=== PATIENT | male | born 1970 | race Caucasian/White ===

== ENCOUNTER 2017-03-10 13:11 | Emergency (ER) | payer BC ==
--- NOTE | 2017-03-10 14:13 | EDM.PDOC ---
ED HPI GENERAL MEDICAL PROBLEM - General Chief Complaint: Lower Extremity Injury/Pain Stated Complaint: RT LEG PAIN Time Seen by Provider: 03/10/17 14:36 Source of Information: Reports: Patient History Limitations: Reports: No Limitations - History of Present Illness INITIAL COMMENTS - FREE TEXT/NARRATIVE: Patient is a 47-year-old male who presents to the ED complaining of right leg pain. 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 Since then he developed bruising to the lateral aspect of the proximal fibula with mild swelling present. Pain is very mild in nature. Over the course of the weekend developed increased swelling to his lower leg with mild pain posteriorly. Upon waking this morning patient has noticed increased redness and warmth noted to the right lower leg. There are superficial abrasions present. He has a history of blood clot to the right leg in the past while being treated for colorectal cancer. Denies any chest pain, sob, fever/chills, nausea/vomiting, abdominal pain, sensation changes, pain to his upper leg, knee, right hip, or any additional complaints. Right Lower Leg Pain Score (Numeric/FACES): 4 - Related Data Allergies Allergy/AdvReac Type Severity Reaction Status Date / Time celecoxib [From Celebrex] Allergy Cannot Verified 03/10/17 13:47 Remember Sulfa (Sulfonamide Allergy Cannot Verified 03/10/17 13:47 Antibiotics) Remember Home Meds: Home Meds Doxycycline [Vibramycin] 100 mg PO Q12HR #14 cap 03/10/17 [Rx] Fexofenadine/Pseudoephedrine [Jazmine-D 12 Hour Tablet] 1 tab PO DAILY 03/10/17 [History] Past Medical History Gastrointestinal History: Reports: Other (See Below) Other Gastrointestinal History: colon resection Musculoskeletal History: Reports: Other (See Below) Other Musculoskeletal History: knee surgery; back surgery Oncologic (Cancer) History: Reports: Colon - Past Surgical History HEENT Surgical History: Reports: Tonsillectomy Social & Family History - Tobacco Use Smoking Status *Q: Never Smoker - Recreational Drug Use Recreational Drug Use: No Review of Systems - Review of Systems Review Of Systems: ROS reveals no pertinent complaints other than HPI. ED EXAM, GENERAL - Physical Exam Exam: See Below Exam Limited By: No Limitations General Appearance: Alert, WD/WN, No Apparent Distress Ears: Normal External Exam, Hearing Grossly Normal Nose: Normal Inspection Throat/Mouth: Normal Voice, No Airway Compromise Neck: Normal Inspection, Supple Respiratory/Chest: No Respiratory Distress, Lungs Clear, Normal Breath Sounds, No Accessory Muscle Use Cardiovascular: Normal Peripheral Pulses, Regular Rate, Rhythm, No Murmur Peripheral Pulses: 2+: Radial (R) GI/Abdominal: Normal Bowel Sounds, Soft, Non-Tender, No Organomegaly, No Distention Back Exam: Normal Inspection Extremities: Other (Right leg: Swelling noted to lower leg with increased redness noted distally. Increased warmth noted. Ecchymosis to the the right proximal fibula. Pain with palpation of the lower extremity. Mild pain posteriorly. No decreased range of motion noted.) Course - Vital Signs Last Recorded V/S: Last Vital Signs Temp 97.6 F 03/10/17 13:48 Pulse 62 03/10/17 13:48 Resp 16 03/10/17 13:48 BP 124/70 03/10/17 13:48 Pulse Ox 98 03/10/17 13:48 - Orders/Labs/Meds Orders: Active Orders 24 hr Category Date Time Status Peripheral IV Care [RC] . DIRECTED Care 03/10/17 14:54 Active Tibia Fibula Rt [CR] Stat Exams 03/10/17 14:53 Taken VL Duplex Lwr Ext Veins Ltd Rt [US] Stat Exams 03/10/17 14:53 Taken Peripheral IV Insertion Adult [OM.PC] Stat Oth 03/10/17 14:53 Ordered Labs: Laboratory Tests 03/10/17 03/10/17 03/10/17 Range/Units 15:10 15:10 15:10 WBC 5.27 (4.23-9.07) K/mm3 RBC 4.68 (4.63-6.08) M/mm3 Hgb 14.1 (13.7-17.5) gm/L Hct 41.1 (40.1-51.0) % MCV 87.8 (79.0-92.2) fl MCH 30.1 (25.7-32.2) pg MCHC 34.3 (32.2-35.5) g/dl RDW Std Deviation 41.4 (35.1-43.9) fL Plt Count 197 (163-337) K/mm3 MPV 9.4 (9.4-12.3) fl Neut % (Auto) 66.2 (34.0-67.9) % Lymph % (Auto) 20.7 L (21.8-53.1) % [place] % (Auto) 7.6 (5.3-12.2) % Eos % (Auto) 4.6 (0.8-7.0) Baso % (Auto) 0.9 (0.1-1.2) % Neut # (Auto) 3.49 (1.78-5.38) K/mm3 Lymph # (Auto) 1.09 L (1.32-3.57) K/mm3 [place] # (Auto) 0.40 (0.30-0.82) K/mm3 Eos # (Auto) 0.24 (0.04-0.54) K/mm3 Baso # (Auto) 0.05 (0.01-0.08) K/mm3 PT 10.2 (8.0-13.0) SECONDS INR 0.94 APTT 27 (22-36) SECONDS Sodium 140 (136-145) mEq/L Potassium 3.8 (3.5-5.1) mEq/L Chloride 106 (98-107) mEq/L Carbon Dioxide 28 (21-32) mEq/L Anion Gap 9.8 (5-15) BUN 15 (7-18) mg/dL Creatinine 1.0 (0.7-1.3) mg/dL Est Cr Clr Drug Dosing 115.09 mL/min Estimated GFR (MDRD) > 60 (>60) mL/min BUN/Creatinine Ratio 15.0 (14-18) Glucose 98 (74-106) mg/dL Calcium 9.1 (8.5-10.1) mg/dL Total Bilirubin 0.5 (0.2-1.0) mg/dL AST 16 (15-37) U/L ALT 20 (16-63) U/L Alkaline Phosphatase 66 (46-116) U/L C-Reactive Protein < 0.2 (<1.0) mg/dL Total Protein 7.0 (6.4-8.2) g/dl Albumin 4.0 (3.4-5.0) g/dl Globulin 3.0 gm/dL Albumin/Globulin Ratio 1.3 (1-2) Meds: Medications Discontinued Medications Generic Name Dose Route Start Last Admin Trade Name Freq PRN Reason Stop Dose Admin Sodium Chloride 10 ml 03/10/17 14:53 03/10/17 15:16 Saline Flush FLUSH 10 ml ASDIRECTED PRN Administration Keep Vein Open - Radiology Interpretation Free Text/Narrative:: IV will be established. Initial labs and studies include CBC, chem 14, CRP, PTT/ INR, PTT, x-ray of the right tib-fib, and VLDL duplex of the right lower extremity. - Re-Assessments/Exams Free Text/Narrative Re-Assessment/Exam: X-ray of right tibia/fibula normal. Labs reviewed with no concerning finding. 1814 VL duplex revealed: No evidence of deep venous thrombosis. Do believe patient may have early onset of cellulitis. Thus patient will received doxycycline 200mg PO. Discharge instructions as documented. Departure - Departure Time of Disposition: 18:19 Disposition: Home, Self-Care 01 Condition: Good Clinical Impression: Cellulitis and abscess of right leg, Superficial abrasion Contusion of leg, right Qualifiers: Encounter type: initial encounter Qualified Code(s): S80.11XA - Contusion of right lower leg, initial encounter - Discharge Information Prescriptions: Doxycycline [Vibramycin] 100 mg PO Q12HR #14 cap Instructions: Cellulitis, Adult, Contusion Referrals: Jenae Burrows PA-C [Primary Care Provider] - Forms: ED Department Discharge Additional Instructions: Take the prescription as prescribed. Utilize Tylenol and ibuprofen in alternating fashion for pain. Elevate when able to reduce swelling and pain. Apply warm compresses 6 times daily, 30 induration, refrain from ice applied to the affected area. Follow-up with PCP in the next 3-5 days. Return to ED for any new or worsening symptoms as discussed including: Increased redness, swelling, fever, nausea/vomiting, or purulent drainage. - My Orders Last 24 Hours: My Active Orders 03/10/17 14:53 Tibia Fibula Rt [CR] Stat VL Duplex Lwr Ext Veins Ltd Rt [US] Stat Peripheral IV Insertion Adult [OM.PC] Stat 03/10/17 14:54 Peripheral IV Care [RC] . DIRECTED - Assessment/Plan Last 24 Hours: My Active Orders 03/10/17 14:53 Tibia Fibula Rt [CR] Stat VL Duplex Lwr Ext Veins Ltd Rt [US] Stat Peripheral IV Insertion Adult [OM.PC] Stat 03/10/17 14:54 Peripheral IV Care [RC] . DIRECTED
[2017-03-10 14:46] VITALS: BP 124/70
[2017-03-10] MEDS ORDERED: Sodium Chloride 0.9% 10 ML Syringe FLUSH PRN (14:53)
--- NOTE | 2017-03-11 11:09 | CR ---
Right tibia and fibula: 2 views of the right tibia and fibula were obtained. Longitudinal lucent line is identified within the diaphysis of the fibula with less prominent lucent line noted within the tibia. These appear more prominent than usually seen for a nutrient foramen. Difficult to completely exclude a longitudinal split i.e. incomplete fracture within the tibia and fibula. Soft tissue swelling is noted. Plantar spur is seen. Impression: 1. Longitudinal lucent lines within the tibia and fibular diaphysis. Difficult to completely exclude incomplete longitudinal fractures. Findings could represent prominent nutrient foramen although this appears somewhat unusual for this etiology. MRI recommended to further evaluate if patient's symptoms warrant further evaluation. Diagnostic code #5 Equivocal disagree with preliminary report issued by [facility] ([facility] report dictated on 03/10/17, 4:27 PM Central Time)
--- NOTE | 2017-03-11 12:17 | US ---
Right lower extremity deep venous ultrasound: Duplex and color flow imaging was obtained of the right common femoral, proximal greater saphenous, superficial femoral, popliteal, posterior tibial and peroneal veins. Left common femoral vein was also evaluated. Posterior tibial vein not well seen. Other veins show normal phasic flow, augmentation and compression. Small amount of subcutaneous fluid seen within the calf. Incidental lymph nodes seen within the right groin. Impression: 1. Poorly seen posterior tibial vein. 2. Small amount of subcutaneous fluid in area of bruising. 3. No findings of deep venous thrombosis are seen. Diagnostic code #2 Agree with preliminary report issued by [facility] ([facility] preliminary report dictated on 03/10/17, 6:33 PM Central Time)
== END 2017-03-10 18:45 | disposition home or self-care (01) ==
LOC: JD.ED 13:11
DX: S80.11XA Contusion of right lower leg, initial encounter (principal); L03.115 Cellulitis of right lower limb; S80.811A Abrasion, right lower leg, initial encounter; Z98.890 Other specified postprocedural states; Z85.038 Personal history of other malignant neoplasm of large intestine; Z79.899 Other long term (current) drug therapy; Z88.2 Allergy status to sulfonamides; Z88.8 Allergy status to other drugs, medicaments and biological substances; W01.0XXA Fall on same level from slipping, tripping and stumbling without subsequent striking against object, initial encounter
CPT/HCPCS: 36415; 73590; 80053; 85025; 85610; 85730; 86140; 93971; 99284; J7050; 99283

== ENCOUNTER 2017-07-07 11:24 | Day surgery (SDC) | payer BC, MEDICAID ==
[~2017-07-07 11:24] MED LIST: Lactated Ringers 1,000 ML IV SCH; Lidocaine 1%/Sod Bicarbonate in NS 8.4% 1 ML Syringe PRN; Sodium Chloride 0.9% 10 ML Syringe FLUSH PRN
[2017-07-07] MEDS ORDERED: Propofol 200 MG/20 ML SDV ONE ×3 (11:54→12:51)
[2017-07-07] MEDS ORDERED: Lidocaine 1% 2 ML ONE ×2 (11:54)
--- NOTE | 2017-07-07 11:59 | PCM.PREANE ---
Preanesthetic Assessment - Anesthesia/Transfusion/Family Hx Anesthesia History: Prior Anesthesia Without Reaction Family History of Anesthesia Reaction: No Transfusion History: No Prior Transfusion(s) - Review of Systems General: Other (Body Aches, improving. Thinks he had the flu wednesday. ) Pulmonary: No Symptoms Cardiovascular: No Symptoms Gastrointestinal: No Symptoms, Other (IBS, Rectal Cancer) Neurological: No Symptoms, Other (Migraines) Other: Reports: None (Blood Clot in Right Leg in 2012), Depression - Physical Assessment NPO Status Date: 07/06/17 NPO Status Time: 22:30 Pulse: 62 O2 Sat by Pulse Oximetry: 98 Respiratory Rate: 17 Blood Pressure: 131/66 Temperature: 36.7 C Weight: 151.046 kg ASA Class: 2 Mental Status: Alert & Oriented x3 Airway Class: Mallampati = 1 Dentition: Reports: Normal Dentition Thyro-Mental Finger Breadths: 3 Mouth Opening Finger Breadths: 3 ROM/Head Extension: Full Lungs: Clear to Auscultation, Normal Respiratory Effort Cardiovascular: Regular Rate, Regular Rhythm - Allergies Allergies/Adverse Reactions: Allergies Allergy/AdvReac Type Severity Reaction Status Date / Time celecoxib [From Celebrex] Allergy Cannot Verified 07/06/17 08:20 Remember Sulfa (Sulfonamide Allergy Cannot Verified 07/06/17 08:20 Antibiotics) Remember - Acknowledgements Anesthesia Type Planned: MAC Pt an Appropriate Candidate for the Planned Anesthesia: Yes Alternatives and Risks of Anesthesia Discussed w Pt/Guardian: Yes Pt/Guardian Understands and Agrees with Anesthesia Plan: Yes PreAnesthesia Questionnaire HEENT History: Reports: Allergic Rhinitis, Impaired Vision Cardiovascular History: Reports: None Respiratory History: Reports: None Gastrointestinal History: Reports: Irritable Bowel Syndrome, Other (See Below) Other Gastrointestinal History: colon resection Genitourinary History: Reports: None RECONCILIATION SPECIALIST History: Reports: None Musculoskeletal History: Reports: Other (See Below) Other Musculoskeletal History: knee surgery; back surgery Neurological History: Reports: Migraines Psychiatric History: Reports: Depression Endocrine/Metabolic History: Reports: None Hematologic History: Reports: Other (See Below) Other Hematologic History: blood clotting disorder Immunologic History: Reports: None Oncologic (Cancer) History: Reports: Colon Dermatologic History: Reports: Other (See Below) Other Dermatologic History: skin infection - Past Surgical History Head Surgeries/Procedures: Reports: None HEENT Surgical History: Reports: Tonsillectomy Cardiovascular Surgical History: Reports: None Respiratory Surgical History: Reports: None GI Surgical History: Reports: Appendectomy Female Surgical History: Reports: None Male Surgical History: Reports: None Endocrine Surgical History: Reports: None Neurological Surgical History: Reports: Other (See Below) Other Neurological Surgeries/Procedures: low back pain Musculoskeletal Surgical History: Reports: None Oncologic Surgical History: Reports: None - SUBSTANCE USE Smoking Status *Q: Never Smoker Recreational Drug Use History: No - HOME MEDS Home Medications: Home Meds Fexofenadine/Pseudoephedrine [Jazmine-D 12 Hour Tablet] 1 tab PO DAILY 03/10/17 [History] Aspirin [Halfprin] 81 mg PO DAILY 07/06/17 [History] Ibuprofen 600 mg PO TID PRN 07/06/17 [History] - CURRENT (IN HOUSE) MEDS Current Meds: Current Medications Lactated Ringer's (Ringers, Lactated) 1,000 mls @ 125 mls/hr IV ASDIRECTED SOPHIA Stop: 07/07/17 23:00 Lidocaine/Sodium Bicarbonate (Buffered Lidocaine 1% In Ns 8.4%) 0.25 ml .XX ONETIME PRN PRN Reason: Prior to IV Start Stop: 07/07/17 18:00 Sodium Chloride (Saline Flush) 10 ml FLUSH ASDIRECTED PRN PRN Reason: Keep Vein Open Stop: 07/07/17 18:00 Discontinued Medications Lidocaine HCl (Xylocaine-Mpf 1%) Confirm Administered Dose 2 mls @ as directed .ROUTE .STK-MED ONE Stop: 07/07/17 11:55 Lidocaine HCl (Xylocaine-Mpf 1%) Confirm Administered Dose 2 mls @ as directed .ROUTE .STK-MED ONE Stop: 07/07/17 11:55 Propofol (Diprivan 20 Ml) Confirm Administered Dose 200 mg .ROUTE .STK-MED ONE Stop: 07/07/17 11:55
[2017-07-07] MEDS ORDERED: fentaNYL 100 MCG/2 ML SDV ONE (12:51)
--- NOTE | 2017-07-07 13:03 | PCM48HPAN ---
Post Anesthesia Note - EVALUATION WITHIN 48HRS OF ANESTHETIC Vital Signs in Normal Range: Yes Patient Participated in Evaluation: Yes Respiratory Function Stable: Yes Airway Patent: Yes Cardiovascular Function Stable: Yes Hydration Status Stable: Yes Pain Control Satisfactory: Yes Nausea and Vomiting Control Satisfactory: Yes Mental Status Recovered: Yes
--- NOTE | 2017-07-07 13:06 | PCM.OPNOTE ---
- General Post-Op/Procedure Note Date of Surgery/Procedure: 07/07/17 Operative Procedure(s): colonoscopy with rectal biopsy Findings: 1. Perianal skin tags 2. Slightly prolapsed internal hemorrhoids uncomplicated 3. colorectal anastomosis intact without stricture 4. Mild radiation change to the rectum 5. Uncomplicated sigmoid diverticula No metachronous lesions seen. Pre Op Diagnosis: history of rectal cancer status post adjuvant chemoradiation therapy followed by resection and primary anastomosis Post-Op Diagnosis: 1. Perianal skin tags. 2. Slightly prolapsed internal hemorrhoids uncomplicated. 3. colorectal anastomosis intact without stricture. 4. Mild radiation proctitis. 5. Uncomplicated sigmoid diverticula Anesthesia Technique: MAC, Moderate Sedation Primary Surgeon: Spencer Rodney Pathology: rectal biopsy Complications: None Condition: Good Free Text/Narrative:: After adequate IV sedation and analgesia was obtained the patient was placed on his left side with monitoring. Perianal inspection digital rectal examination revealed the perianal tags and slightly prolapsed uncomplicated internal hemorrhoids. The prostate was grossly normal. A lubricated colonoscope was inserted into the rectum then advanced under direct vision to the cecum without difficulty. Bowel preparation was adequate. The cecum ascending colon and transverse colons were without inflammatory changes and there were no mass lesions seen. There were no polyps seen as well. The descending colon and sigmoid likewise were unremarkable. No metachronous lesions were seen in these areas as well. The scope was then withdrawn to the Colerectal anastomosis that was uncomplicated. There were no strictures. The rectum had bowel radiation change endoscopically and I took a biopsy for histologic evaluation. In the retroflexed view the internal hemorrhoids could be seen. Air was removed as I finished the procedure which he tolerated well. Aircraft Electrical Systems Specialist photographs were taken for the patient for the medical record.
[2017-07-07 13:18] VITALS: BP 124/68
== END 2017-07-07 13:33 | disposition home or self-care (01) ==
LOC: JD.SDS 11:24
PROVIDERS: ATTEND Surgery
DX: K64.8 Other hemorrhoids (principal); K57.30 Diverticulosis of large intestine without perforation or abscess without bleeding; K64.4 Residual hemorrhoidal skin tags; K63.89 Other specified diseases of intestine; Z88.2 Allergy status to sulfonamides; Z88.8 Allergy status to other drugs, medicaments and biological substances; Z79.82 Long term (current) use of aspirin; Z79.899 Other long term (current) drug therapy; J30.2 Other seasonal allergic rhinitis; Z90.49 Acquired absence of other specified parts of digestive tract; Z72.0 Tobacco use
CPT/HCPCS: 45380; J3010; J7120; 00810; J2704

== ENCOUNTER 2022-11-08 17:13 | Emergency (ER) | payer MEDICAID ==
[2022-11-08 17:27] VITALS: BP 134/84; PULSE 57
[2022-11-08] MEDS ORDERED: Sodium Chloride 0.9% 10 ML Syringe FLUSH PRN (18:20)
[2022-11-08 18:47] LABS: ESTIMATED GFR 91 mL/min (>60)
== END 2022-11-08 21:30 | disposition home or self-care (01) ==
LOC: JD.ED 17:13
DX: R07.2 Precordial pain (principal); Z88.1 Allergy status to other antibiotic agents; Z88.2 Allergy status to sulfonamides; Z79.82 Long term (current) use of aspirin; Z79.899 Other long term (current) drug therapy
CPT/HCPCS: 36415; 71045; 80053; 83880; 84484; 85025; 85379; 86140; 93005; 99285; J3490; 93010; 99283